=== PATIENT | male | born 1955 | race Asian ===

== ENCOUNTER → 2017-03-14 | Outpatient (CLI) | payer BC | END | disposition home or self-care (01) | LOC: RADPV 13:49 | PROVIDERS: ATTEND Internal Medicine | DX: I70.0 Atherosclerosis of aorta (principal) | CPT/HCPCS: 71020 ==

== ENCOUNTER → 2017-09-24 | Outpatient (CLI) | payer BC | END | disposition home or self-care (01) | LOC: RADPV 10:54 | PROVIDERS: ATTEND Internal Medicine | DX: I70.0 Atherosclerosis of aorta (principal) | CPT/HCPCS: 71020 ==